=== PATIENT | female | born 1955 | race Caucasian/White ===

== ENCOUNTER 2023-09-07 14:49 | Emergency (ER) | payer MEDICARE, SELFPAY ==
[2023-09-07 14:55] VITALS: BP 149/90
[2023-09-07 15:18] LABS: % Basophils 0.8 % (0-2); % Eosinophils 0.6 % (0-6); % Immature Granulocytes 0.8 % (0-0.5); % Lymphocytes 31.8 % (20.5-51.1); % Monocytes 9.7 % (1.7-9.3); % Neutrophils 56.3 % (42.2-75.2); Absolute Lymphocytes 1.6 10^3/uL (1.2-3.4); Absolute Monocytes 0.5 10^3/uL (0.1-0.6); Absolute Neutrophils 2.8 10^3/uL (1.4-6.5); Hematocrit 41.9 % (37.0-47.0); Hemoglobin 14.2 g/dL (12.0-16.0); Mean Corp Hgb Conc. 33.9 g/dL (33.0-37.0); Mean Corpuscular Hgb 31.8 pg (27.0-31.0); Mean Corpuscular Volume 93.9 fL (81.0-99.0); Mean Platelet Volume 10.5 fL (7.4-10.4); Nucleated Red Blood Cells % 0 %; Platelet Count 172 10^3/uL (130-400); Red Blood Cell Count 4.46 10^6/uL (4.20-5.40); Red Cell Dist. Width 12.9 % (11.5-14.5); White Blood Cell Count 4.9 10^3/uL (4.8-10.8)
[2023-09-07 15:33] VITALS: BP 147/71
[2023-09-07 15:44] LABS: ALT (SGPT) 35 U/L (0-35); AST (SGOT) 52 U/L (14-36); Albumin 4.5 g/dl (3.5-5.0); Alkaline Phosphatase 80 U/L (38-126); Blood Urea Nitrogen 8 mg/dl (7-17); Calcium 9.3 mg/dl (8.4-10.2); Carbon Dioxide 29 mmol/L (22-30); Chloride 97 mmol/L (98-107); Glucose 146 mg/dl (70-99); Potassium 4.1 mmol/L (3.5-5.1); Sodium 130 mmol/L (135-145); Total Bilirubin 1.4 mg/dl (0.2-1.3); Total Protein 6.8 g/dl (6.3-8.2); eGFR > 60.00
[2023-09-07 15:57] LABS: Troponin I < 0.012 ng/ml
[2023-09-07 16:00] VITALS: BP 156/75
--- NOTE | 2023-09-07 16:12 | ED.GENMED ---
History of Present Illness
General
Chief Complaint: Chest Pain
Source: patient
Time Seen by Provider: 09/07/23 16:01
Travel History
Have you had any contact with someone who has COVID-19?: No
Do you have any symptoms of coronavirus? Fever > 100 degrees, chills, cough, shortness of breath, sore throat, loss of taste or smell, muscle aches, or headache?: No
History of Present Illness
History of Present Illness:
This patient is a 68-year-old female presents emergency department with complaints of 'tightness' that she noted in the center of her chest lasting about 2 seconds and then resolving completely. She was walking at the time and continued walking.
As she was still walking about 5 to 10 minutes later she again developed 'tightness' in the center of her chest without radiation lasting a few seconds and then resolving. She finished her walk and then came to the emergency department for
evaluation. She describes it as a sense of being 'muscular'. The pain was not pleuritic in nature, without radiation, exacerbating, factors. She denies any associated symptoms such as dyspnea, diaphoresis, nausea, vomiting, headache, back pain,
neck pain, jaw pain. Patient denies a personal history of CAD, does note that her brother had a stent placed within the last few years. Patient eats a plant-based diet, walks 10 miles per day, and considers herself in good health. She last saw
her primary care doctor about 2 years ago. 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 Patient is currently asymptomatic.
Past History
Past History
ED Past Medical History: Psychiatric (anxiety)
ED Past Surgical History: Appendectomy and Other (Mastoidectomy, endometriosis surgery, hernia repair)
Social History
Tobacco: Non-smoker
Alcohol: None
Drug: None
Personal: Single
Living: alone
Phy Exam
Physical Exam
Physical Exam:
GENERAL: Alert , in no apparent distress
EYE: pupils equal and reactive
NECK: Supple, no significant adenopathy.
ENT: o/p clr, mmm.
CARDIAC: Regular rate and rhythm .
LUNGS: Clear breath sounds bilaterally, no acute respiratory distress, no wheezes/rales/rhonchi
ABDOMEN: Soft, without focal tenderness, no r/g, no cvat
NEUROLOGICAL: Alert and oriented, no focal neuro deficits
SKIN: Warm and dry, skin intact.
MUSCULOSKELETAL: No edema, well perfused.
PSYCH: Normal and appropriate interaction.
Scores
Heart Score for Chest Pain Patients
STEMI patient?: No
History: Slightly or Non-Suspicious
ECG: Normal
Age: >/= 65 years
Risk Factors: No Risk Factors
Troponin: </= Normal Limit
Heart Score for Chest Pain Patients: 2
Heart Score Risk: 2.5% MACE over next 6 weeks
Course
Orders/Labs/Results
Orders:
Orders
09/07/23 14:56
Electrocardiogram (*1) Urgent
Reason for Study: Chest Pain
EKG- Treatment ONCE
09/07/23 15:09
CMP [Comprehensive Metabolic Panel] Urgent
Complete Blood Count/With Diff Urgent
Troponin I Urgent
09/07/23 18:15
Troponin I Urgent
Abnormal Lab Results
09/07/23
15:09
MCH 31.8 H pg
(27.0-31.0)
MPV 10.5 H fL
(7.4-10.4)
Immature Gran % 0.8 H %
(0-0.5)
Monocytes % 9.7 H %
(1.7-9.3)
Sodium 130 L mmol/L
(135-145)
Chloride 97 L mmol/L
(98-107)
Glucose 146 H mg/dl
(70-99)
Total Bilirubin 1.4 H mg/dl
(0.2-1.3)
AST 52 H U/L
(14-36)
09/07/23 15:09
09/07/23 15:09
Vital Signs
Initial and Last Documented VS:
Initial Vital Signs
Temp Pulse Resp BP Pulse Ox
97.8 F 80 16 149/90 100
09/07/23 14:55 09/07/23 14:55 09/07/23 14:55 09/07/23 14:55 09/07/23 14:55
Last Documented Vital Signs
Temp Pulse Resp BP Pulse Ox
97.8 F 61 16 132/63 100
09/07/23 14:55 09/07/23 18:30 09/07/23 18:30 09/07/23 18:00 09/07/23 18:30
*Critical Care Note
Total Time (30-74mins, 75-104mins- exclusive of procedures): Not Applicable
Update Note
Update Note:
Patient presents to the Emergency Department with chest pain
Number and Complexity of Problems Addressed at the Encounter
� Chronic conditions affecting care:
� Acute Exacerbation and/or Progression of Chronic Illness:
� Differential Diagnosis includes: But not limited to ACS, anxiety, pericarditis, muscular, etc.
Amount and/or Complexity of Data to be Reviewed and Analyzed
� I performed an independent evaluation of and my interpretation is:
EKG: Read by me, normal sinus rhythm, normal rate, normal axis, no acute ischemia
CT:
Xrays:
Laboratory Studies: Generally unremarkable, first troponin within normal limits second troponin within normal limits
Other:
� Review of other/old records reveals:
� Clinical information was obtained by an independent historian:
� Prescriptions/Medications Considered but not given:
� Further testing considered but not performed:
Risk of Complications and/or Morbidity or Mortality of Patient Management
� Social determinants of health affecting care:
� Discussion with other providers (PCP, Hospitalists, Consultants, etc):
� Escalation of care including admission/observation vs risk of discharge considered: Patient remains pain-free here, history and physical not entirely suspicious for ACS, dissection, PE, etc. Discussed with patient importance
of follow-up and reasons to return to the emergency department.
ED Attending Note
-
Portions of this chart may have been created with voice recognition software.� Occasional wrong word or��sound alike� substitutions may have occurred due to the inherent limitations of voice recognition software.
Discharge Plan
Departure
Patient Disposition: Home (Routine Discharge)
Date of Disposition: 09/07/23
Time of Disposition: 19:09
Patient with high blood pressure during this ER visit?: Yes
Condition: Good
Discharge Problem:
Chest pain
Instructions: Chest Pain, BLOOD PRESSURE
Prescriptions:
No Action
No Current Medications
0
Referrals:
Sol Dobbins MD [Active] - Next open appointment
UNKNOWN - PT DOES,NOT KNOW [Family Provider] -
Nataly Boston MD [Active] - Next open appointment
Activity Restrictions/Additional Instructions:
IF YOU DEVELOP INCREASING/NEW/PERSISTENT PAIN, ANY TROUBLE BREATHING, UNEXPLAINED SWEATINESS, BACK/NECK/ABDOMINAL PAIN, OR OTHER WORRISOME SIGNS, GO TO THE ER IMMEDIATELY!
Interventions
Interventions:
*Risk Screen - Suicide Last Done: 09/07/23 17:14
*General Assessment Last Done: 09/07/23 17:14
*Neglect/Abuse Screening Last Done: 09/07/23 17:14
*ED COVID-19 Vaccine History Last Done: 09/07/23 17:14
*Nursing Disposition Last Done: 09/07/23 19:24
ED- Cardiac Assessment Last Done: 09/07/23 17:13
Discharge Date and Time
Discharge Date/Time: 09/07/23 19:30
[2023-09-07 17:48] VITALS: BP 121/64
[2023-09-07 18:00] VITALS: BP 132/63
[2023-09-07 18:59] LABS: Troponin I < 0.012 ng/ml
== END 2023-09-07 19:30 | disposition home or self-care (01) ==
LOC: EMR 14:49
PROVIDERS: Physician Assistant Medical; EMERGENCY PHYSICIAN Emergency Medicine
DX: R07.89 Other chest pain (principal); R03.0 Elevated blood-pressure reading, without diagnosis of hypertension
CPT/HCPCS: 99284; 80053; 84484; 85025; 93005

== ENCOUNTER 2025-06-23 11:13 | Emergency (ER) | payer MEDICARE, SELFPAY ==
[2025-06-23 11:27] VITALS: BP 160/83
--- NOTE | 2025-06-23 14:46 | ED.GENMED ---
History of Present Illness
<Nell Martinez MD, Resident - Last Filed: 06/23/25 15:26>
General
Chief Complaint: Jaw Pain
Source: patient
Exam Limitations: none
Time Seen by Provider: 06/23/25 14:32
Nursing documentation reviewed up to this point in time: agreed with
History of Present Illness
History of Present Illness:
70yo F with no significant pmh who presents with persistent R-sided TMJ discomfort and clicking with opening mouth.
States that she tripped and fell on the sidewalk about 3 weeks ago. She fractured her L patella and landed on the L side of her face, breaking her glasses. About 2 weeks ago, she began noticing discomfort with opening her mouth to brush her teeth,
particularly on the R side. She also notices clicking & popping in the R TMJ area when chewing. She is nervous that there is some sort of fracture or mechanical issue and would like to have imaging for peace of mind. Denies any DURÁN, tenderness to the
touch, or oral pain. Able to open mouth to speak & eat.
Past History
<Nell Martinez MD, Resident - Last Filed: 06/23/25 15:26>
Past History
ED Past Medical History: Psychiatric (anxiety)
ED Past Surgical History: Appendectomy and Other (Mastoidectomy, endometriosis surgery, hernia repair)
Social History
Tobacco: Non-smoker
Alcohol: None
Drug: None
Personal: Single
Living: alone
Review of Systems
<Nell Martinez MD, Resident - Last Filed: 06/23/25 15:26>
Review of Systems
All Other Systems: ROS reviewed and negative except as documented in HPI and ROS
Constitutional: Reports no symptoms
EENT: Reports other (TMJ pain, R side)
Respiratory: Reports no symptoms
Cardiac: Reports no symptoms
ABD/GI: Reports no symptoms
: Reports no symptoms
Musculoskeletal: Reports no symptoms
Skin: Reports no symptoms
Neurological: Reports no symptoms
Psychiatric: Reports anxiety
Phy Exam
<Nell Martinez MD, Resident - Last Filed: 06/23/25 15:26>
General Physical Exam
General Presentation: well appearing and no apparent distress
General age: appears stated age
General Skin: warm and dry
General Habitus: normal
General Mental: anxious
General Hydration: appears well hydrated
Cardiovascular Exam
Cardiovascular Exam: regular rate/rhythm and no edema
Pulmonary Exam
Pulmonary Exam: no respiratory distress
Gastrointestinal Exam
Gastrointestinal Exam: soft and non distended
Neurological Exam
Neurological Exam: alert, oriented x3, no motor deficits and speech normal
Musculoskeletal Exam
Musculoskeletal Exam: other (no tenderness to palpation along mandible or bilateral TMJ areas; able to open jaw with limited ROM)
Skin Exam
Skin Exam: normal color and warm/dry
Psychiatric Exam
Psychiatric Exam: anxious
Course
<Nell Martinez MD, Resident - Last Filed: 06/23/25 15:26>
Orders/Labs/Results
Orders:
Orders
06/23/25 15:12
CT Facial Bones W/o Iv Contras Urgent
Comment:
Reason For Exam: trauma; pain R TMJ
Vital Signs
Initial and Last Documented VS:
Initial Vital Signs
Temp Pulse Resp BP Pulse Ox
36.6 C 65 20 160/83 100
06/23/25 11:27 06/23/25 11:27 06/23/25 11:27 06/23/25 11:27 06/23/25 11:27
Last Documented Vital Signs
Temp Pulse Resp BP Pulse Ox
36.6 C 59 16 124/74 99
06/23/25 11:27 06/23/25 16:06 06/23/25 16:06 06/23/25 16:06 06/23/25 16:06
<Nico Fierro DO - Last Filed: 06/23/25 18:26>
Orders/Labs/Results
Orders:
Orders
06/23/25 15:12
CT Facial Bones W/o Iv Contras Urgent
Comment:
Reason For Exam: trauma; pain R TMJ
Vital Signs
Initial and Last Documented VS:
Initial Vital Signs
Temp Pulse Resp BP Pulse Ox
36.6 C 65 20 160/83 100
06/23/25 11:27 06/23/25 11:27 06/23/25 11:27 06/23/25 11:27 06/23/25 11:27
Last Documented Vital Signs
Temp Pulse Resp BP Pulse Ox
36.6 C 59 16 124/74 99
06/23/25 11:27 06/23/25 16:06 06/23/25 16:06 06/23/25 16:06 06/23/25 16:06
<Nell Martinez MD, Resident - Last Filed: 06/23/25 15:26>
MDM/Problems Addressed
Differential Diagnosis Includes:
TMJ dysfunction
Fracture of jaw
TMJ dislocation
Tension headache
MDM/Problems Addressed:
- Provide discharge information about TMJ disorder, likely due to tension in neck/head s/p fall & will self-resolve w home care/conservative mgmt
- Pt could benefit from 10day course of NSAID
- Given no tenderness to palpation over muscles of mastication, likely no role for muscle relaxants at this point in time
- Given physical exam, unlikely that imaging would manager of change - patient agrees, no imaging
<Nell Martinez MD, Resident - Last Filed: 06/23/25 15:26>
*Pulse Oximetry
SaO2: 100
Patient hypoxic: not evaluated
*Critical Care Note
Total Time (30-74mins, 75-104mins- exclusive of procedures): Not Applicable
ED Attending Note
<Nell Martinez MD, Resident - Last Filed: 06/23/25 15:26>
-
Portions of this chart may have been created with voice recognition software.� Occasional wrong word or��sound alike� substitutions may have occurred due to the inherent limitations of voice recognition software.
<Nico Fierro DO - Last Filed: 06/23/25 18:26>
ED Attending Note
Patient seen and examined by attending physician: Yes
I performed the substantive portion of visit, reviewed & personally made and approve the management plan that is documented in note by myself or LESVIA.: Yes
ED Attending Note:
I evaluated patient at bedside. The patient has minimal discomfort to palpation at the right TMJ, there is otherwise no bony tenderness. No mandibular tenderness. Very low suspicion for serious etiology. Highly doubt fracture. Offered and
considered CT imaging however ultimately patient declined which I feel is most appropriate. Recommended NSAIDs and OMFS or dental follow-up for evaluation of TMJ.
Discharge Plan
Departure
Patient Disposition: Home (Routine Discharge)
Date of Disposition: 06/23/25
Time of Disposition: 15:21
Patient with high blood pressure during this ER visit?: No
Condition: Good
Covid-19: Not Applicable
Discharge Problem:
TMJ (temporomandibular joint disorder)
Instructions: Temporomandibular Joint (TMJ) Disorders (DC)
Prescriptions:
No Action
No Current Medications
0
Referrals:
UNKNOWN - PT DOES,NOT KNOW [Family Provider]
Activity Restrictions/Additional Instructions:
You were seen today for pain with opening jaw and clicking/popping with jaw use. Your symptoms are likely due to TMJ dysfunction, probably triggered by strain & tension in the surrounding musculature after your fall onto your face. Based on your
exam, there is an extremely low likelihood that you have a dislocation or any serious fracture in your jaw.
Please review the included materials on TMJ disorders for tips on managing and resolving symptoms at home. Starting tomorrow, please take naproxen 500mg every 12hr for 10 days to reduce inflammation. OR if you prefer, you may take ibuprofen 800mg
every 8 hours for 10 days. You can also see physical therapy to help with your symptoms.
Return to the ED if you have severe pain that is worsening/refractory to management at home, you are unable to speak/chew, or you have redness/swelling in the mouth.
Interventions
Interventions:
*Risk Screen - Suicide Last Done: 06/23/25 12:24
*General Assessment Last Done: 06/23/25 16:06
*Neglect/Abuse Screening Last Done: 06/23/25 16:06
*ED COVID-19 Vaccine History Last Done: 06/23/25 16:06
*ED Influenza Vaccine History Last Done: 06/23/25 16:06
[facility] Risk Assessment Tool Last Done: 06/23/25 16:06
*Nursing Disposition Last Done: 06/23/25 16:06
ED-EENT Assessment Last Done: 06/23/25 16:06
ED- Cardiac Assessment Last Done: 06/23/25 16:06
Discharge Date and Time
Discharge Date/Time: 06/23/25 16:10
Print Language: IVORIAN
[2025-06-23 16:06] VITALS: BP 124/74
== END 2025-06-23 16:10 | disposition home or self-care (01) ==
LOC: EMR 11:13
PROVIDERS: EMERGENCY PHYSICIAN Emergency Medicine
DX: M26.601 Right temporomandibular joint disorder, unspecified (principal); Z90.49 Acquired absence of other specified parts of digestive tract; Z87.828 Personal history of other (healed) physical injury and trauma; Z91.81 History of falling
CPT/HCPCS: 99282